=== PATIENT | female | born 1970 ===

== ENCOUNTER 2018-10-04 06:46 | Day surgery (SDC) | payer MEDICAID ==
[2018-10-04 06:58] VITALS: BMI 40.9
[2018-10-04 07:31] LABS: BASO # 0.1 K/uL (0.0-0.2); BASO % 0.6 % (0.0-2.0); EOS # 0.4 K/uL (0.0-0.7); EOS % 3.9 % (0.0-4.0); HEMOGLOBIN 13.2 g/dL (12.0-16.0); LYMPH # 2.1 K/uL (1.0-4.3); LYMPH % 22.8 % (20.0-40.0); MEAN CELL VOLUME 84.7 fl (81.0-99.0); MEAN CORPUSCULAR HEMOGLOBIN 27.6 pg (27.0-31.0); MEAN CORPUSCULAR HGB CONC 32.6 g/dL (33.0-37.0); MEAN PLATELET VOLUME 7.8 fl (7.2-11.7); MONO # 0.8 K/uL (0.0-0.8); MONO % 8.3 % (0.0-10.0); NEUT # 6.1 K/uL (1.8-7.0); NEUT % 64.4 % (50.0-75.0); NRBC % 0.3 % (0.0-0.0); RBC 4.79 Mil/uL (3.80-5.20); RED CELL DISTRIBUTION WIDTH 15.4 % (11.5-14.5); WHITE BLOOD COUNT 9.4 K/uL (4.8-10.8)
--- NOTE | 2018-10-04 08:34 | CARD ---
APPROVED REPORT Date of service: 10/04/2018 EKG Measurement Heart [id number] NM [id number] <Conclusion> Normal sinus rhythm Normal ECG
[2018-10-04] MEDS ORDERED: Lidocaine 4% (Laryng-O-Jet) Kit MM ONE (09:04)
[2018-10-04] MEDS ORDERED: Lidocaine 1% 5ml Abboject ONE (09:04)
[2018-10-04] MEDS ORDERED: Propofol 10 mg/ml Inj (20 ML) ONE (09:04)
[2018-10-04] MEDS ORDERED: Midazolam 2 MG/2 ML VIAL ONE (09:04)
[2018-10-04] MEDS ORDERED: Succinylcholine Chloride 20 mg/ml Syr (5 ml) IV ONE (09:29)
[2018-10-04] MEDS ORDERED: Lactated Ringer's 1,000 ML IV ONE (10:06)
[2018-10-04] MEDS ORDERED: Silver Nitrate Topical - Stick ONE (11:03)
[2018-10-04] MEDS ORDERED: HYDROmorphone 0.5 mg/0.5 ml ISec IVP PRN (11:14)
[2018-10-04] MEDS ORDERED: Lactated Ringer's 1,000 ML IV SCH (11:15)
[2018-10-04 12:06] VITALS: O2SAT 99
[2018-10-04 12:22] VITALS: RESP 18
[2018-10-04 13:18] VITALS: BP 128/78; PULSE 82; TEMP 98
--- NOTE | 2018-10-07 04:02 | OP ---
PROCEDURE DATE: 10/04/2018 PREOPERATIVE DIAGNOSIS: Abnormal uterine bleeding with failed in-office endometrial biopsy x2 due to stenotic os. POSTOPERATIVE DIAGNOSIS: Abnormal uterine bleeding with failed in-office endometrial biopsy x2 due to stenotic os. PROCEDURE: Hysteroscopy, dilatation and curettage, and endometrial curettage with MyoSure. SURGEON: Claudio Yap MD FINDINGS: Anteverted uterus, mildly enlarged with normal adnexa. The cervix was visualized. No lesion seen. Adnexa with no masses. ESTIMATED BLOOD LOSS: 10 mL. IV FLUIDS: 300 mL. FLUID DEFICIT: 370 mL. URINE OUTPUT: Approximately 15 mL drained with red rubber catheter. PATHOLOGY: Endometrial curettings. DESCRIPTION OF PROCEDURE: The patient was taken to the operating room where she was given general anesthesia without difficulty. She was prepped and draped in the usual sterile fashion in the dorsal lithotomy position. The cervix was then exposed with a weighted speculum and the anterior lip of the cervix was grasped with a single-tooth tenaculum. The uterus was then sounded to 8 cm. The endocervical canal was then progressively dilated with Hanks and Hegar dilators. The hysteroscope was then introduced into the uterine cavity using sterile saline as the solution for distending media with the attached camera. The endometrial cavity was distended with fluids and the cavity was visualized. Proliferative endometrium was noted throughout with no distinct polyps or fibroid seen. The MyoSure device was then introduced and curetting of the proliferative endometrium was then performed with the device and moderate amount of endometrium was noted. The patient tolerated this procedure well. Several pictures were then taken of the endometrial cavity and the hysteroscope and MyoSure device were then removed. A larger curette was then used to obtain further tissue and this was sent to the pathology for analysis. All instruments were then removed from the vaginal vault. After the tenaculum was removed, small amount of bleeding was noted and this was stopped with silver nitrite. The patient was then repositioned, awakened from anesthesia, and she was transferred to the recovery room in stable and satisfactory condition. She was informed to continue pelvic rest and followup in the office in two weeks for pathology results and postoperative evaluation. Claudio Yap MD [facility] # [id number]
== END 2018-10-04 13:15 | disposition home or self-care (01) ==
LOC: H.OPSURG 06:46
PROVIDERS: ATTEND Obstetrics & Gynecology
DX: N93.9 Abnormal uterine and vaginal bleeding, unspecified (principal); D25.9 Leiomyoma of uterus, unspecified; J45.909 Unspecified asthma, uncomplicated
CPT/HCPCS: 36415; 58563; 85025; 88305; 93005; J1885; J2250; J2704; J2765; J3010; J7030; J7120